=== PATIENT | female | born 1990 | race African-American/Black ===

== ENCOUNTER 2019-10-10 01:43 | Emergency (ER) | payer SELFPAY ==
[~2019-10-10] VITALS: Ht 172.7 cm; Wt 165.0 kg
[2019-10-10 01:56] VITALS: BP 176/119
[2019-10-10] MEDS ORDERED: ASPIRIN 81MG TABLET PO ONE (02:15)
[2019-10-10 02:59] LABS: BASOPHILS % 0.9 % (0.0-2.0); EOSINOPHILS % 2.5 % (0.0-5.0); HEMATOCRIT. 41.1 % (36.0-48.0); HEMOGLOBIN. 13.9 g/dL (12.0-16.0); LYMPHOCYTES % 49.3 % (20.0-50.0); MEAN CORPUSCULAR HEMOGLOBIN 30.5 pg (28.0-32.0); MEAN CORPUSCULAR VOLUME 90.5 fL (81.0-99.0); MEAN PLATELET VOLUME 7.8 fl (7.4-10.4); MONOCYTES % 13.7 % (2.0-8.0); NEUTROPHILS % 33.6 % (40.0-76.0); PLATELET 269 x1000/uL (130-400); RED BLOOD CELL COUNT 4.54 mill/uL (4.2-5.4); RED CELL DISTRIBUTION WIDTH 14.2 % (11.6-14.6)
[2019-10-10 03:03] LABS: CHLORIDE 104 mEq/L (98-107)
== END 2019-10-10 04:39 | disposition home or self-care (01) ==
LOC: ER 01:43
DX: R07.89 Other chest pain (principal); E66.01 Morbid (severe) obesity due to excess calories; Z68.43 Body mass index [BMI] 50.0-59.9, adult; Z98.890 Other specified postprocedural states
CPT/HCPCS: 36415; 71045; 80053; 81025; 83880; 84484; 85025; 99284; Z7610

== ENCOUNTER 2023-12-22 20:23 | Emergency (ER) | payer MEDICAID ==
[~2023-12-22] VITALS: Ht 172.7 cm; Wt 167.0 kg
[2023-12-22 20:42] VITALS: O2SAT 98
[2023-12-22 22:43] VITALS: TEMP 98
[2023-12-22 23:43] LABS: BASOPHILS % 0.9 % (0.0-2.0); EOSINOPHILS % 1.9 % (0.0-5.0); HEMATOCRIT. 41.3 % (36.0-48.0); HEMOGLOBIN. 13.6 g/dL (12.0-16.0); LYMPHOCYTES % 47.3 % (20.0-50.0); MEAN CORPUSCULAR HEMOGLOBIN 30.2 pg (28.0-32.0); MEAN CORPUSCULAR HGB CONC 32.8 g/dL (31.0-37.0); MEAN PLATELET VOLUME 7.9 fl (7.4-10.4); MONOCYTES % 8.7 % (2.0-8.0); NEUTROPHILS % 41.2 % (40.0-76.0); PLATELET 284 x1000/uL (130-400); RED BLOOD CELL COUNT 4.49 mill/uL (4.2-5.4); RED CELL DISTRIBUTION WIDTH 13.8 % (11.6-14.6); WHITE BLOOD COUNT 6.6 x1000/uL (4.5-11.0)
[2023-12-22 23:50] LABS: CHLORIDE 107 mEq/L (98-107); POTASSIUM 3.9 mEq/L (3.5-5.1); SODIUM 137 mEq/L (136-145)
[2023-12-22 23:51] LABS: CALCIUM 9.3 mg/dL (8.7-10.4); CARBON DIOXIDE 27 mEq/L (21-32)
[2023-12-22 23:56] LABS: CREATININE 0.8 mg/dL (0.6-1.0); GLUCOSE 106 mg/dL (70-105)
[2023-12-22 23:57] LABS: TROPONIN I HIGH SENSITIVITY 7 ng/L (3.0-34); UREA NITROGEN BLOOD 12 mg/dL (9-23)
[2023-12-22 23:58] LABS: ALANINE AMINOTRANSFERASE 24 IU/L (10-49); ALBUMIN 4.5 g/dL (3.2-4.8); ASPARTATE AMINOTRANSFERASE 23 IU/L (<34)
[2023-12-22 23:59] LABS: BILIRUBIN TOTAL 0.3 mg/dL (0.1-1.0); PROTEIN TOTAL 7.3 g/dL (6.0-8.3)
[2023-12-23 00:01] VITALS: BP 174/113; RESP 16
[2023-12-23 00:05] LABS: HCG SCREEN NEGATIVE
[2023-12-23 00:28] VITALS: PULSE 92
== END 2023-12-23 02:02 | disposition home or self-care (01) ==
LOC: ER 20:23
DX: R07.89 Other chest pain (principal); R61 Generalized hyperhidrosis
CPT/HCPCS: 36415; 71045; 80053; 84484; 84703; 85025; 85379; 93005; 99285

== ENCOUNTER 2025-02-27 10:35 | Emergency (ER) | payer MEDICAID ==
[~2025-02-27] VITALS: Ht 172.7 cm; Wt 163.0 kg
[2025-02-27 10:44] VITALS: O2SAT 99
[2025-02-27 11:34] LABS: BASOPHILS % 1.0 % (0.0-2.0); EOSINOPHILS % 1.2 % (0.0-5.0); HEMATOCRIT. 41.3 % (36.0-48.0); HEMOGLOBIN. 13.8 g/dL (12.0-16.0); LYMPHOCYTES % 44.2 % (20.0-50.0); MEAN PLATELET VOLUME 8.0 fl (7.4-10.4); MONOCYTES % 8.2 % (2.0-8.0); NEUTROPHILS % 45.4 % (40.0-76.0); PLATELET 314 x1000/uL (130-400); RED BLOOD CELL COUNT 4.56 mill/uL (4.2-5.4); RED CELL DISTRIBUTION WIDTH 13.7 % (11.6-14.6)
[2025-02-27 11:56] LABS: CREATININE 0.8 mg/dL (0.6-1.0); UREA NITROGEN BLOOD 11 mg/dL (9-23)
[2025-02-27 12:25] LABS: CLARITY URINE CLEAR (CLEAR); COLOR URINE YELLOW (YELLOW); GLUCOSE URINE NEGATIVE (NEGATIVE); KETONES URINE NEGATIVE (NEGATIVE); LEUKOCYTE ESTERASE URINE NEGATIVE (NEGATIVE); NITRITE URINE NEGATIVE (NEGATIVE); OCCULT BLOOD URINE NEGATIVE (NEGATIVE); PH URINE 6.0 (4.5-8.0); PROTEIN URINE TRACE (NEGATIVE); SPECIFIC GRAVITY URINE 1.021 (1.005-1.030); UROBILINOGEN URINE 0.2 E.U./dL (0.2-1.0)
[2025-02-27 12:26] LABS: HCG SCREEN NEGATIVE
[2025-02-27 12:32] LABS: TROPONIN I HIGH SENSITIVITY 4 ng/L (3.0-34)
[2025-02-27 12:33] LABS: ASPARTATE AMINOTRANSFERASE 27 IU/L (<34); BILIRUBIN DIRECT 0.1 mg/dL (<=3.0); BILIRUBIN TOTAL 0.4 mg/dL (0.1-1.0); PROTEIN TOTAL 7.3 g/dL (6.0-8.3)
[2025-02-27 12:43] LABS: BACTERIA URINE 1+; RBC URINE 0-2 /hpf (0-2); SQUAMOUS EPITHELIAL CELL URINE 1+ /lpf (RARE/1+); WBC URINE 0-2 /hpf (0-2); YEAST URINE NONE SEEN
[2025-02-27] MEDS: KETOROLAC 30MG/ML VIAL IM SCH (12:50)
[2025-02-27 13:05] VITALS: BP 176/114; PULSE 82; RESP 18; TEMP 37.2; O2SAT 99
== END 2025-02-27 13:06 | disposition home or self-care (01) ==
LOC: ER 10:35
DX: R07.89 Other chest pain (principal); F41.9 Anxiety disorder, unspecified; I10 Essential (primary) hypertension; E78.5 Hyperlipidemia, unspecified; Z79.899 Other long term (current) drug therapy
CPT/HCPCS: 80076; 80048; 81003; 81025; 84703; 83690; 85025; 85379; 84484; 36415; 96372; 99283; J1885; Z7610

== ENCOUNTER 2025-05-17 18:59 | Emergency (ER) | payer MEDICAID ==
[~2025-05-17] VITALS: Ht 172.7 cm; Wt 165.0 kg
[2025-05-17 19:07] VITALS: TEMP 37; O2SAT 99
[2025-05-17 20:28] VITALS: BP 192/113; PULSE 79; RESP 16; O2SAT 99
[2025-05-17] MEDS ORDERED: BO1 TP (20:30)
[2025-05-17] MEDS ORDERED: CLIN-194 MT (20:30)
== END 2025-05-17 21:19 | disposition home or self-care (01) ==
LOC: ER 18:59
DX: L02.2 Cutaneous abscess, furuncle and carbuncle of trunk (principal); I10 Essential (primary) hypertension; E78.00 Pure hypercholesterolemia, unspecified
CPT/HCPCS: 99283